=== PATIENT | female | born 1935 | race Caucasian/White ===

== ENCOUNTER 2018-07-12 07:06 | Emergency (ER) | payer MEDICARE, MEDICAID ==
[~2018-07-12] VITALS: Ht 162.6 cm; Wt 61.2 kg
--- NOTE | 2018-07-12 07:17 | PHYS DOC ---
Adult General [facility] HPI Patient is a 82 year old female who presents with fall. Patient lives in an assisted living facility. This morning, she was lying on her couch when she accidentally rolled off. She landed on the floor striking her face. She presents to the ER complaining of facial pain, cervical neck pain, and bilateral knee pain. She has had no nausea or vomiting since the accident. No vision changes. At baseline, she ambulates without assistance. She has been at baseline health otherwise with no recent illness. No chest pain, shortness of breath, palpitations. She has been eating and drinking normally. Review of Systems Review of Systems Constitutional: Denies Eyes: Denies change in visual acuity HENT: Denies nasal congestion Respiratory: Denies cough or shortness of breath Cardiovascular: No additional information not addressed in HPI GI: Denies abdominal pain, nausea, vomiting : Denies dysuria or hematuria Musculoskeletal: Denies back pain Integument: Denies rash or skin lesions Neurologic: Denies headache, focal weakness Endocrine: Denies polyuria All other systems were reviewed and found to be within normal limits, except as documented in this note. Current Medications Current Medications Current Medications Medications (Trade) Dose Ordered Sig/Mono Start Time Stop Time Status Last Admin Dose Admin Diphtheria/ Tetanus/Acell Pertussis (Boostrix) 0.5 ml ONCE ONCE 07/12/18 08:00 07/12/18 08:01 DC 07/12/18 08:08 0.5 ML Allergies Allergies Allergies Coded Allergies Type Severity Reaction Last Updated Verified adhesive tape Allergy Intermediate 07/12/18 Yes levofloxacin Allergy Intermediate 07/12/18 Yes Physical Exam Physical Exam Constitutional: Well developed, well nourished, no acute distress, non-toxic appearance HENT: Normocephalic, ecchymosis over left orbit, bilateral external ears normal , oropharynx moist Eyes: PERRLA, EOMI, conjunctiva normal Neck: Normal range of motion, no tenderness, supple Cardiovascular:Heart rate regular rhythm, no murmur Lungs & Thorax: Bilateral breath sounds clear to auscultation Abdomen: Bowel sounds normal, soft, NTTP Skin: Warm, dry, no erythema, no rash Back: No tenderness Extremities: mild TTP with ROM of the left knee Neurologic: Alert and oriented X 3, normal motor function Psychologic: Affect normal Current Patient Data Vital Signs Vital Signs Date Time Temp Pulse Resp B/P (MAP) Pulse Ox O2 Delivery O2 Flow Rate FiO2 07/12/18 10:00 54 20 96 07/12/18 07:06 98.1 197/72 (113) Room Air 98.1 Lab Values Laboratory Tests Test 07/12/18 07:30 07/12/18 09:45 White Blood Count 7.5 x10^3/uL (4.0-11.0) Red Blood Count 4.50 x10^6/uL (3.50-5.40) Hemoglobin 12.2 g/dL (12.0-15.5) Hematocrit 36.9 % (36.0-47.0) Mean Corpuscular Volume 82 fL (79-100) Mean Corpuscular Hemoglobin 27 pg (25-35) Mean Corpuscular Hemoglobin Concent 33 g/dL (31-37) Red Cell Distribution Width 16.6 % (11.5-14.5) H Platelet Count 378 x10^3/uL (140-400) Neutrophils (%) (Auto) 65 % (31-73) Lymphocytes (%) (Auto) 18 % (24-48) L Monocytes (%) (Auto) 8 % (0-9) Eosinophils (%) (Auto) 8 % (0-3) H Basophils (%) (Auto) 1 % (0-3) Neutrophils # (Auto) 4.9 x10^3uL (1.8-7.7) Lymphocytes # (Auto) 1.4 x10^3/uL (1.0-4.8) Monocytes # (Auto) 0.6 x10^3/uL (0.0-1.1) Eosinophils # (Auto) 0.6 x10^3/uL (0.0-0.7) Basophils # (Auto) 0.1 x10^3/uL (0.0-0.2) Sodium Level 141 mmol/L (136-145) Potassium Level 4.1 mmol/L (3.5-5.1) Chloride Level 102 mmol/L (98-107) Carbon Dioxide Level 30 mmol/L (21-32) Anion Gap 9 (6-14) Blood Urea Nitrogen 22 mg/dL (7-20) H Creatinine 0.9 mg/dL (0.6-1.0) Estimated GFR (Cockcroft-Gault) 59.9 Glucose Level 117 mg/dL (70-99) H Calcium Level 9.2 mg/dL (8.5-10.1) Troponin I Quantitative < 0.017 ng/mL (0.000-0.055) Urine Collection Type Unknown Urine Color Yellow Urine Clarity Clear Urine pH 7.5 Urine Specific Isabella 1.010 Urine Protein Negative mg/dL (NEG-TRACE) Urine Glucose (UA) Negative mg/dL (NEG) Urine Ketones (Stick) Negative mg/dL (NEG) Urine Blood Negative (NEG) Urine Nitrite Negative (NEG) Urine Bilirubin Negative (NEG) Urine Urobilinogen Dipstick 0.2 mg/dL (0.2 mg/dL) Urine Leukocyte Esterase Negative (NEG) Urine RBC 1-2 /HPF (0-2) Urine WBC 0 /HPF (0-4) Urine Squamous Epithelial Cells Occ /LPF Urine Bacteria 0 /HPF (0-FEW) Laboratory Tests 07/12/18 07:30 Laboratory Tests 07/12/18 07:30 EKG EKG No STEMI Interpretation Time: 07:25 Radiology/Procedures Radiology/Procedures XR bilat knees: A right total knee prosthesis is in place in satisfactory position. There are numerous surgical clips in the soft tissues posteromedially. No fracture or dislocation is identified. There is subcutaneous edema. Arterial calcifications are present. On the left, there is moderate spurring at the knee joint and at the patellofemoral articulation with chondrocalcinosis. No fracture or dislocation is identified. Surgical clips are also present posteromedially on the left. There is also moderate subcutaneous edema on the left. IMPRESSION: 1. A right total knee prosthesis is in satisfactory position. 2. Moderate degenerative change at the left knee joint with chondrocalcinosis. 3. No acute bony abnormality is detected. CT head, c-spine, face w.o.: here is mild cerebral atrophy. There is a cavum septum pellucida et vergae which is a normal variant. There is no shift of the midline structures. There is no evidence of acute intracranial hemorrhage or mass effect. IMPRESSION: No acute intracranial abnormality is detected. CT of the facial bones without contrast, 07/12/2018: There is a scalp hematoma over the left frontal region. No underlying fracture or bony abnormality is detected. The paranasal sinuses are clear. The orbital contents are unremarkable. IMPRESSION: No acute facial bone abnormality is detected. CT of the cervical spine without contrast, 07/12/2018: Noncontrast scans were obtained with multiplanar reconstructions produced. There are mild degenerative changes involving scattered facet joints bilaterally. There are mild scattered posterior disc bulges. No fracture or subluxation is evident. No significant central spinal stenosis is seen. Incidental note is made of a nonspecific 1.6 cm nodule in the right lobe of the thyroid gland. There is calcific plaquing at the carotid bifurcations. IMPRESSION: 1. Mild degenerative change. 2. No acute bony abnormality is detected. Course & Med Decision Making Course & Med Decision Making Pertinent Labs and Imaging studies reviewed. (See chart for details) Patient was evaluated in the emergency department after a small from a short height. She had minor abrasion to the upper lip. Otherwise, her examination was normal. X-ray of the knees were normal. CT scan of the head, face, C-spine did not reveal any acute findings. Basic labs were checked including troponin which was not elevated. The patient's EKG was not suspicious for ischemia. Urinalysis was also negative for infection. Patient was ambulated in the emergency department and did ambulate at her baseline gait. She was discharged back to the nursing center from where she came. EMS was used to escort her. Prior to discharge, all results were reviewed and discussed with the patient and her family who were at the bedside temporarily. All of their questions were answered. All parties were in agreement to the plan of care. Dragon Disclaimer Dragon Disclaimer This electronic medical record was generated, in whole or in part, using a voice recognition dictation system. Departure Departure Disposition: 01 HOME, SELF-CARE Condition: GOOD KARISHMA YANG DO Jul 12, 2018 07:17
[2018-07-12 07:43] LABS: BASO # 0.1 x10^3/uL (0.0-0.2); BASO % 1 % (0-3); EOS # 0.6 x10^3/uL (0.0-0.7); EOS % 8 % (0-3); HEMATOCRIT 36.9 % (36.0-47.0); HEMOGLOBIN 12.2 g/dL (12.0-15.5); LYMPH # 1.4 x10^3/uL (1.0-4.8); LYMPH % 18 % (24-48); MEAN CORPUSCULAR HEMOGLOBIN 27 pg (25-35); MEAN CORPUSCULAR HGB CONC 33 g/dL (31-37); MEAN CORPUSCULAR VOLUME 82 fL (79-100); MONO # 0.6 x10^3/uL (0.0-1.1); MONO % 8 % (0-9); NEUT # 4.9 x10^3uL (1.8-7.7); NEUT % 65 % (31-73); PLATELET COUNT 378 x10^3/uL (140-400); RED CELL DISTRIBUTION WIDTH 16.6 % (11.5-14.5); WHITE BLOOD COUNT 7.5 x10^3/uL (4.0-11.0)
[2018-07-12 07:55] LABS: CALCIUM 9.2 mg/dL (8.5-10.1); CREATININE 0.9 mg/dL (0.6-1.0); GFR 59.9; POTASSIUM 4.1 mmol/L (3.5-5.1)
[2018-07-12] MEDS ORDERED: DIPHTH,PERTUSS(ACELL),TET TOX 0.5 ML DISP.SYRIN. VAX IM ONE (08:00)
--- NOTE | 2018-07-12 08:13 | EKG ---
[facility] [address] [place] [address] Test Date: 2018-07-12 Test Time: 07:21:02 Pat Name: NAMAN CLINE Department: Room: Gender: Female Quality Control Tech: : 1935 Requested By: KARISHMA YANG Order Number: [id number] Reading MD: Maciej Baldwin Measurements Intervals Noble Rate: 60 P: 49 WI: 180 QRS: 19 QRSD: 74 T: 30 QT: 448 QTc: 448 Interpretive Statements SINUS RHYTHM QRS(T) CONTOUR ABNORMALITY CONSISTENT WITH ANTEROSEPTAL INFARCT AGE UNDETERMINED ABNORMAL ECG RI6.01 No previous ECG available for comparison Electronically Signed On 07-15-2018 17:17:20 NURSES' AIDE by Maciej Baldwin
--- NOTE | 2018-07-12 08:38 | RAD ---
CT of the head without contrast, 07/12/2018: HISTORY: Fall, injury There is mild cerebral atrophy. There is a cavum septum pellucida et vergae which is a normal variant. There is no shift of the midline structures. There is no evidence of acute intracranial hemorrhage or mass effect. IMPRESSION: No acute intracranial abnormality is detected. CT of the facial bones without contrast, 07/12/2018: There is a scalp hematoma over the left frontal region. No underlying fracture or bony abnormality is detected. The paranasal sinuses are clear. The orbital contents are unremarkable. IMPRESSION: No acute facial bone abnormality is detected. CT of the cervical spine without contrast, 07/12/2018: Noncontrast scans were obtained with multiplanar reconstructions produced. There are mild degenerative changes involving scattered facet joints bilaterally. There are mild scattered posterior disc bulges. No fracture or subluxation is evident. No significant central spinal stenosis is seen. Incidental note is made of a nonspecific 1.6 cm nodule in the right lobe of the thyroid gland. There is calcific plaquing at the carotid bifurcations. IMPRESSION: 1. Mild degenerative change. 2. No acute bony abnormality is detected. Electronically signed by: Glenn Pérez MD (07/12/2018 8:33 AM) [facility]
--- NOTE | 2018-07-12 09:54 | RAD ---
Bilateral knees, 6 views, 07/12/2018: HISTORY: Fall, knee pain A right total knee prosthesis is in place in satisfactory position. There are numerous surgical clips in the soft tissues posteromedially. No fracture or dislocation is identified. There is subcutaneous edema. Arterial calcifications are present. On the left, there is moderate spurring at the knee joint and at the patellofemoral articulation with chondrocalcinosis. No fracture or dislocation is identified. Surgical clips are also present posteromedially on the left. There is also moderate subcutaneous edema on the left. IMPRESSION: 1. A right total knee prosthesis is in satisfactory position. 2. Moderate degenerative change at the left knee joint with chondrocalcinosis. 3. No acute bony abnormality is detected. Electronically signed by: Glenn Pérez MD (07/12/2018 9:50 AM) [facility]
[2018-07-12 10:00] VITALS: BP 186/72
[2018-07-12 10:07] LABS: BILIRUBIN,URINE NEGATIVE (NEG); CLARITY,URINE CLEAR; COLOR,URINE YELLOW; NITRITE,URINE NEGATIVE (NEG); PH,URINE 7.5; PROTEIN,URINE NEGATIVE (NEG-TRACE); UROBILINOGEN,URINE 0.2 mg/dL (0.2 mg/dL)
[2018-07-12 10:56] LABS: SQUAMOUS EPITHELIAL CELL,UR OCC /LPF
[2018-07-12 10:57] LABS: BACTERIA,URINE 0 /HPF (0-FEW); WBC,URINE 0 /HPF (0-4)
== END 2018-07-12 12:30 | disposition home or self-care (01) ==
LOC: ER 07:06
DX: R51 Headache (principal); M54.2 Cervicalgia; M25.562 Pain in left knee; M25.561 Pain in right knee; R94.31 Abnormal electrocardiogram [ECG] [EKG]; Z88.8 Allergy status to other drugs, medicaments and biological substances; Z88.1 Allergy status to other antibiotic agents
CPT/HCPCS: 36415; 70450; 70486; 72125; 73562; 80048; 81001; 84484; 85025; 90471; 90715; 93005; 99284